=== PATIENT | female | born 1995 | race American Indian/Alaskan Native ===

== ENCOUNTER 2016-05-11 14:16 | Emergency (ER) | payer SELFPAY ==
[2016-05-11 15:20] VITALS: BP 113/68
--- NOTE | 2016-05-15 15:51 | ED Elopement Review ---
ED Pt Elopement review - Call Back decision Pt Call Back Decision: No action required
== END 2016-05-11 15:41 | disposition left against medical advice (07) ==
LOC: ED 14:16
DX: O26.891 Other specified pregnancy related conditions, first trimester (principal); R00.2 Palpitations; R07.9 Chest pain, unspecified; Z53.21 Procedure and treatment not carried out due to patient leaving prior to being seen by health care provider
CPT/HCPCS: 93005; 93010

== ENCOUNTER 2016-10-29 00:36 | Outpatient (CLI) | payer MEDICAID ==
[2016-10-29 01:02] VITALS: BP 112/63
[2016-10-29] MEDS ORDERED: LACTATED RINGERS 500 ML IV ONE (01:57)
[2016-10-29 02:58] LABS: Bacteria,Urine 1+ /HPF (Negative); Bilirubin,Urine NEG (Negative); Blood,Urine NEG (Negative); Ketones,Urine NEG (Negative); Leukocyte Esterase,Urine NEG (Negative); Mucus,Urine FEW /HPF; Nitrite,Urine NEG (Negative); Protein,Urine <15 mg/dL mg/dL (Negative); Urobilinogen,Urine < 2.0 mg/dL (<2.0)
[2016-10-29] MEDS ORDERED: LACTATED RINGERS 0 ML ONE (03:07)
== END 2016-10-29 03:44 | disposition home or self-care (01) ==
LOC: TRG 00:36
PROVIDERS: ATTEND Obstetrics & Gynecology
DX: O47.03 False labor before 37 completed weeks of gestation, third trimester (principal); Z3A.36 36 weeks gestation of pregnancy
CPT/HCPCS: 59025; 81001; J7120

== ENCOUNTER 2017-06-22 07:39 | Observation (INO) | payer MEDICAID ==
[2017-06-22] MEDS ORDERED: BENADRYL IV ONE (07:55)
[2017-06-22] MEDS ORDERED: PEPCID IV ONE (07:55)
--- NOTE | 2017-06-22 07:56 | Emergency Department Report ---
ED Allergic Reaction HPI - General Chief complaint: Allergic Reaction Stated complaint: ALLERGIC REACTION Time Seen by Provider: 06/22/17 07:51 Source: patient, RN notes reviewed Mode of arrival: Ambulatory Limitations: No Limitations - History of Present Illness Initial Comments: This is a 21-year-old female. The patient is previously unknown to this provider. She does not have a primary care doctor and denies chronic medical conditions. Patient presents to the ER with unprovoked swelling of her tongue. It started last night. It is constant. It is painless. It does not radiate anywhere. It does not have exacerbating or relieving factors. Patient reports this happened to her around 5 or 6 weeks ago, and it resolved with Benadryl. She denies obvious inciting factors. She specifically denies medications, creams, colognes, new linens, intractable. She subjectively feels like her throat is scratchy. MD Complaint: other -: Gradual Exposure: unknown Symptoms: orolingual swelling, hoarseness. denies: rash, itching, facial swelling, lip swelling, difficulty breathing, syncopy, dizziness, nausea, vomiting, other, abdominal pain Severity: moderate Treatment Prior to Arrival: none - Related Data Previous Rx's Medication Instructions Recorded Last Taken Type Vit No.130/Iron/Folic 1 each PO QDAY #30 tablet 04/06/16 Unknown Rx [ Tablet] Allergies Allergy/AdvReac Type Severity Reaction Status Date / Time No Known Allergies Allergy Unverified 04/05/16 22:26 ED Review of Systems ROS: Stated complaint: ALLERGIC REACTION Other details as noted in HPI Comment: All other systems reviewed and negative ED Past Medical Hx - Past Medical History Previous Medical History?: Yes Hx Hypertension: No Hx Diabetes: No Hx Deep Vein Thrombosis: No Hx Renal Disease: No Hx Sickle Cell Disease: No Hx Seizures: No Hx Kidney Stones: Yes Hx Asthma: Yes (childhood) Hx HIV: No Additional medical history: shingles,Eczema, anemia, Vaginal delivery x 1 - Surgical History Past Surgical History?: No - Social History Smoking Status: Current Every Day Smoker Substance Use Type: Alcohol, Marijuana - Medications Home Medications: Home Medications Medication Instructions Recorded Confirmed Last Taken Type Vit No.130/Iron/Folic 1 each PO QDAY #30 tablet 04/06/16 Unknown Rx [ Tablet] ED Physical Exam - General Limitations: No Limitations General appearance: alert, in no apparent distress - Head Head exam: Present: atraumatic, normocephalic - Eye Eye exam: Present: normal appearance, PERRL, EOMI, other (visual acuity intact to finger counting, color perception, reading at a close distance). Absent: nystagmus - ENT ENT exam: Present: mucous membranes moist, normal external ear exam, other (the patient's tongue is swollen. There is no stridor. Patient has a hot potato voice. The patient is speaking full sentences. The neck is supple.) - Neck Neck exam: Present: normal inspection, full ROM. Absent: tenderness, meningismus - Respiratory Respiratory exam: Present: normal lung sounds bilaterally. Absent: respiratory distress - Cardiovascular Cardiovascular Exam: Present: regular rate, normal rhythm, normal heart sounds. Absent: bradycardia, tachycardia, irregular rhythm, systolic murmur, diastolic murmur, rubs, gallop - GI/Abdominal GI/Abdominal exam: Present: soft, normal bowel sounds. Absent: distended, tenderness, guarding, rebound, rigid, pulsatile mass - Extremities Exam Extremities exam: Present: normal inspection, full ROM, normal capillary refill. Absent: pedal edema, joint swelling, calf tenderness - Back Exam Back exam: Present: normal inspection, full ROM. Absent: tenderness, CVA tenderness (R), paraspinal tenderness, vertebral tenderness - Neurological Exam Neurological exam: Present: alert, oriented X3, CN II-XII intact, normal gait, other (Extraocular movements intact. Tongue midline. No facial droop. Facial sensation intact to light touch in the V1, V2, V3 distribution bilaterally. 5 and 5 strength in 4 extremities.. Sensation is intact to light touch in 4 extremities.). Absent: motor sensory deficit - Psychiatric Psychiatric exam: Present: normal affect, normal mood - Skin Skin exam: Present: warm, dry, intact, normal color. Absent: rash ED Course Vital Signs 06/22/17 06/22/17 07:42 08:21 Temperature 99.5 F Pulse Rate 82 Respiratory 20 20 Rate Blood Pressure 120/69 O2 Sat by Pulse 100 100 Oximetry ED Medical Decision Making - Lab Data Result diagrams: 06/22/17 08:08 06/22/17 08:08 Vital Signs 06/22/17 06/22/17 07:42 08:21 Temperature 99.5 F Pulse Rate 82 Respiratory 20 20 Rate Blood Pressure 120/69 O2 Sat by Pulse 100 100 Oximetry Labs 06/22/17 06/22/17 06/22/17 08:08 08:08 08:08 WBC 11.2 H RBC 4.39 Hgb 10.1 Hct 32.9 MCV 75 L MCH 23 L MCHC 31 RDW 17.9 H Plt Count 276 PT 13.0 INR 0.94 Sodium 140 Potassium 4.0 Chloride 104.3 Carbon Dioxide 24 Anion Gap 16 BUN 9 Creatinine 0.6 L Estimated GFR > 60 BUN/Creatinine Ratio 15 Glucose 89 Calcium 8.9 Total Creatine Kinase 470 H HCG, Quant 06/22/17 08:08 WBC RBC Hgb Hct MCV MCH MCHC RDW Plt Count PT INR Sodium Potassium Chloride Carbon Dioxide Anion Gap BUN Creatinine Estimated GFR BUN/Creatinine Ratio Glucose Calcium Total Creatine Kinase HCG, Quant < 2 - Medical Decision Making Differential diagnosis, including but not limited to: Allergic reaction, angioedema Assessment and plan: 21-year-old female with unprovoked and as of now idiopathic angioedema of the tongue. The tongue is swollen. However she is speaking in full sentences and saturating at 99/100%. There is no neck pain or neck stiffness. Patient medicated with Benadryl, Solu-Medrol, Pepcid. Her tongue swelling did not change. The patient will be admitted to the hospital for airway observation. Case was discussed with the Hospital physician, Dr. Arango, who accepted the patient on behalf of Dr. Devaughn Zamora. Critical care attestation.: If time is entered above; I have spent that time in minutes in the direct care of this critically ill patient, excluding procedure time. ED Disposition Clinical Impression: Angioedema Qualifiers: Encounter type: initial encounter Qualified Code(s): T78.3XXA - Angioneurotic edema, initial encounter Disposition: 09 OP ADMIT IP TO THIS HOSP Is pt being admited?: Yes Condition: Good
--- NOTE | 2017-06-22 07:56 | Emergency Department Report ---
HPI - General Chief Complaint: Allergic Reaction Time Seen by Provider: 06/22/17 07:51 ED Past Medical Hx - Past Medical History Previous Medical History?: Yes Hx Hypertension: No Hx Diabetes: No Hx Deep Vein Thrombosis: No Hx Renal Disease: No Hx Sickle Cell Disease: No Hx Seizures: No Hx Kidney Stones: Yes Hx Asthma: Yes (childhood) Hx HIV: No Additional medical history: shingles,Eczema, anemia, Vaginal delivery x 1 - Surgical History Past Surgical History?: No - Social History Smoking Status: Current Every Day Smoker Substance Use Type: Alcohol, Marijuana - Medications Home Medications: Home Medications Medication Instructions Recorded Confirmed Last Taken Type Vit No.130/Iron/Folic 1 each PO QDAY #30 tablet 04/06/16 Unknown Rx [ Tablet] ED Review of Systems ROS: Stated complaint: ALLERGIC REACTION Other details as noted in HPI Physical Exam - Physical Exam Vital Signs: Vital Signs 06/22/17 07:42 Temperature 99.5 F Pulse Rate 82 Respiratory 20 Rate Blood Pressure 120/69 O2 Sat by Pulse 100 Oximetry ED Course Vital Signs 06/22/17 07:42 Temperature 99.5 F Pulse Rate 82 Respiratory 20 Rate Blood Pressure 120/69 O2 Sat by Pulse 100 Oximetry Critical care attestation.: If time is entered above; I have spent that time in minutes in the direct care of this critically ill patient, excluding procedure time. ED Disposition Condition: Stable
[2017-06-22 08:23] LABS: Hematocrit 32.9 % (30.3-42.9); Hemoglobin 10.1 gm/dl (10.1-14.3); Mean Corpuscular HGB Conc 31 % (30-34); Mean Corpuscular Volume 75 fl (79-97); Platelet Count 276 K/mm3 (140-440); Red Blood Count 4.39 M/mm3 (3.65-5.03); Red Cell Distribution Width 17.9 % (13.2-15.2)
[2017-06-22 08:25] LABS: Mean Corpuscular Hemoglobin 23 pg (28-32)
[2017-06-22 08:34] LABS: INR 0.94 (0.87-1.13)
[2017-06-22 08:35] LABS: BUN/Creatinine Ratio 15; Blood Urea Nitrogen 9 mg/dL (7-17); Calcium 8.9 mg/dL (8.4-10.2); Hemolysis Index 2
[2017-06-22] MEDS ORDERED: TYLENOL PO PRN (09:51)
[2017-06-22] MEDS ORDERED: ZOFRAN IV PRN (09:51)
[2017-06-22] MEDS ORDERED: SODIUM CHLORIDE FLUSH SYRINGE 10 ML IV PRN (09:51)
--- NOTE | 2017-06-22 09:59 | History and Physical Report ---
History of Present Illness Date of examination: 06/22/17 Date of admission: 06/22/17 Chief complaint: Tongue swelling History of present illness: Patient is a 21-year-old female with no significant past medical history except for several months this time who presents to the hospital with report of a provoked swelling of her tongue which started last night and has remained constant and painless. The patient denies any inciting factors. She denies any medication. She suspects that he could be secondary to to pineapple allergy but is not sure. She denies any medications creams colons nearly noted. Her hair appears to have been she denies any recent changes on what she uses to her hair has not done any head in recent weeks. In the ER she is clinically stable but still has significant swelling of the tongue and as a result impeding her speech. Although she recalls an episode 6 weeks ago but is unable to associate this with pineapple at this time. She does not demonstrate any swallowing difficulty. But states that her throat is scratchy. She received high dose of Medrol and also Benadryl and famotidine in the ER. Review of system. Constitutional: No fever, fatigue or weight loss. Skin: No rash. Eyes: No recent vision problems or eye pain. ENT: No congestion, ear pain,. Tongue swelling Endocrine: No thyroid problems. Cardiovascular: No chest pain. Respiratory: No cough, shortness of breath, congestion, or wheezing. Gastrointestinal: No abdominal pain, nausea, vomiting, or diarrhea. Genitourinary: No dysuria. Musculoskeletal: No joint swelling. Neurologic: No seizures. Hematologic: No unusual bruising or bleeding. Psychiatric: No psychiatric problems, hallucinations or depression. All other systems reviewed and otherwise negative. Past History Past Medical History: No medical history Past Surgical History: No surgical history Social history: no significant social history Family history: no significant family history Medications and Allergies Allergies Allergy/AdvReac Type Severity Reaction Status Date / Time No Known Allergies Allergy Unverified 04/05/16 22:26 Home Medications Medication Instructions Recorded Confirmed Last Taken Type Vit No.130/Iron/Folic 1 each PO QDAY #30 tablet 04/06/16 Unknown Rx [ Tablet] Exam - Physical Exam Narrative exam: VITAL SIGNS: Reviewed. GENERAL: The patient appeared well nourished and normally developed. Vital signs as documented. HEAD: No signs of head trauma. EYES: Pupils are equal. Extraocular motions intact. EARS: Hearing grossly intact. MOUTH: Swollen and protruding tongue is not able to retract. NECK: No adenopathy, no JVD. CHEST: Chest with clear breath sounds bilaterally. No wheezes, rales, or rhonchi. CARDIAC: Regular rate and rhythm. S1 and S2, without murmurs, gallops, or rubs. VASCULAR: No Edema. Peripheral pulses normal and equal in all extremities. ABDOMEN: Soft, without detectable tenderness. No sign of distention. No rebound or guarding, and no masses palpated. Bowel Sounds normal. MUSCULOSKELETAL: Good range of motion of all major joints. Extremities without clubbing, cyanosis or edema. NEUROLOGIC EXAM: Alert and oriented x 3. No focal sensory or strength deficits. Speech distorted. Follows commands. PSYCHIATRIC: Mood normal. SKIN: No rash or lesions. - Constitutional Vitals: Temp Pulse Resp BP Pulse Ox 99.5 F 82 20 120/69 100 06/22/17 07:42 06/22/17 07:42 06/22/17 08:21 06/22/17 07:42 06/22/17 08:21 Results - Labs CBC & Chem 7: 06/22/17 08:08 06/22/17 08:08 Labs: Laboratory Last Values WBC 11.2 K/mm3 (4.5-11.0) H 06/22/17 08:08 RBC 4.39 M/mm3 (3.65-5.03) 06/22/17 08:08 Hgb 10.1 gm/dl (10.1-14.3) 06/22/17 08:08 Hct 32.9 % (30.3-42.9) 06/22/17 08:08 MCV 75 fl (79-97) L 06/22/17 08:08 MCH 23 pg (28-32) L 06/22/17 08:08 MCHC 31 % (30-34) 06/22/17 08:08 RDW 17.9 % (13.2-15.2) H 06/22/17 08:08 Plt Count 276 K/mm3 (140-440) 06/22/17 08:08 PT 13.0 Sec. (12.2-14.9) 06/22/17 08:08 INR 0.94 (0.87-1.13) 06/22/17 08:08 Sodium 140 mmol/L (137-145) 06/22/17 08:08 Potassium 4.0 mmol/L (3.6-5.0) 06/22/17 08:08 Chloride 104.3 mmol/L (98-107) 06/22/17 08:08 Carbon Dioxide 24 mmol/L (22-30) 06/22/17 08:08 Anion Gap 16 mmol/L 06/22/17 08:08 BUN 9 mg/dL (7-17) 06/22/17 08:08 Creatinine 0.6 mg/dL (0.7-1.2) L 06/22/17 08:08 Estimated GFR > 60 ml/min 06/22/17 08:08 BUN/Creatinine Ratio 15 % 06/22/17 08:08 Glucose 89 mg/dL (65-100) 06/22/17 08:08 Calcium 8.9 mg/dL (8.4-10.2) 06/22/17 08:08 Total Creatine Kinase 470 units/L (30-135) H 06/22/17 08:08 HCG, Quant < 2 mIU/mL (0-4) 06/22/17 08:08 Assessment and Plan Assessment and plan: Patient is a 21-year-old female with no significant past medical history except for several months this time who presents to the hospital with report of a provoked swelling of her tongue which started last night and has remained constant and painless. The patient denies any inciting factors. She denies any medication. She suspects that he could be secondary to to pineapple allergy but is not sure. She denies any medications creams colons nearly noted. Her hair appears to have been she denies any recent changes on what she uses to her hair has not done any head in recent weeks. In the ER she is clinically stable but still has significant swelling of the tongue and as a result impeding her speech. Although she recalls an episode 6 weeks ago but is unable to associate this with pineapple at this time. She does not demonstrate any swallowing difficulty. But states that her throat is scratchy. She received high dose of Medrol and also Benadryl and famotidine in the ER. Angioedema Allergic reaction Plan We'll admit the patient and monitor for any respiratory compromise. Start on Solu-Medrol with H2 blockers. Oxygen as needed DVT and GI prophylaxis If remarkable improvement is noted and patient able to tolerate by mouth we'll work on discharge Patient advised of clinical condition she verbalized understanding. Advance Directives: Yes VTE prophylaxis?: Chemical Plan of care discussed with patient/family: Yes
[2017-06-22] MEDS ORDERED: SODIUM CHLORIDE FLUSH SYRINGE 10 ML IV SCH (10:00)
[2017-06-22] MEDS ORDERED: PEPCID IV SCH (10:00)
--- NOTE | 2017-06-22 14:38 | Discharge Summary ---
Providers - Providers Date of Admission: 06/22/17 09:36 Date of discharge: 06/22/17 Attending physician: DINESH CHAMBERS MD Primary care physician: [employer] Hospitalization Reason for admission: allergic reaction Condition: Good Hospital course: Patient is a 21-year-old female with no significant past medical history except for several months this time who presents to the hospital with report of a provoked swelling of her tongue which started last night and has remained constant and painless. The patient denies any inciting factors. She denies any medication. She suspects that he could be secondary to to pineapple allergy but is not sure. She denies any medications creams colons nearly noted. Her hair appears to have been she denies any recent changes on what she uses to her hair has not done any head in recent weeks. In the ER she is clinically stable but still has significant swelling of the tongue and as a result impeding her speech. Although she recalls an episode 6 weeks ago but is unable to associate this with pineapple at this time. She does not demonstrate any swallowing difficulty. But states that her throat is scratchy. She received high dose of Medrol and also Benadryl and famotidine in the ER. Patient improved with solumedrol and H2 sarkis and was discharged with recommendation to get allergy testing adn avoid pineapples and other inciting agents until seen by an allergiest Discharge Diagnosis Angioedema Allergic reaction Disposition: DC-01 TO HOME OR SELFCARE Time spent for discharge: 35 mins Core Measure Documentation - Palliative Care Palliative Care/ Comfort Measures: Not Applicable - Core Measures Any of the following diagnoses?: none - VTE Discharge Requirements Deep Vein Thrombosis/Pulmonary Embolism Present on Admission: No Exam - Physical Exam Narrative exam: VITAL SIGNS: Reviewed. GENERAL: The patient appeared well nourished and normally developed. Vital signs as documented. HEAD: No signs of head trauma. EYES: Pupils are equal. Extraocular motions intact. EARS: Hearing grossly intact. MOUTH: Swollen and protruding tongue is not able to retract. NECK: No adenopathy, no JVD. CHEST: Chest with clear breath sounds bilaterally. No wheezes, rales, or rhonchi. CARDIAC: Regular rate and rhythm. S1 and S2, without murmurs, gallops, or rubs. VASCULAR: No Edema. Peripheral pulses normal and equal in all extremities. ABDOMEN: Soft, without detectable tenderness. No sign of distention. No rebound or guarding, and no masses palpated. Bowel Sounds normal. MUSCULOSKELETAL: Good range of motion of all major joints. Extremities without clubbing, cyanosis or edema. NEUROLOGIC EXAM: Alert and oriented x 3. No focal sensory or strength deficits. Speech distorted. Follows commands. PSYCHIATRIC: Mood normal. SKIN: No rash or lesions. - Constitutional Vitals: Temp Pulse Resp BP Pulse Ox 98.6 F 70 18 115/75 99 06/22/17 12:08 06/22/17 12:08 06/22/17 12:08 06/22/17 12:06/22/17 12:08 Plan Activity: advance as tolerated, fall precautions Diet: advance as tolerated Additional Instructions: must follow with an refrigerated national truck driver for allergy testing Follow up with: PRIMARY CARE, [Primary Care Provider] - 3-5 Days Prescriptions: Famotidine [Pepcid] 20 mg PO BID #20 tablet Prednisone [predniSONE 10 mg (6-Day Pack, 21 Tabs)] 10 mg PO .TAPER #1 tab.ds.pk
[2017-06-22 15:14] VITALS: BP 129/64
== END 2017-06-22 15:20 | disposition home or self-care (01) ==
LOC: ED 07:39 → 3A 09:36 → INTOOBSV 09:36
PROVIDERS: ADMIT Internal Medicine; ATTEND Internal Medicine
DX: T78.3XXA Angioneurotic edema, initial encounter (principal); T78.40XA Allergy, unspecified, initial encounter; X58.XXXA Exposure to other specified factors, initial encounter
CPT/HCPCS: 36415; 80048; 82550; 84702; 85027; 85610; 96374; 96375; 99285; G0378; J1200; J2930

== ENCOUNTER → 2020-03-06 18:48 | Emergency (ER) | payer SELFPAY | END | disposition left against medical advice (07) | LOC: ED 18:48 | DX: M54.2 Cervicalgia (principal); R51.9 Headache, unspecified; Z53.21 Procedure and treatment not carried out due to patient leaving prior to being seen by health care provider ==